=== PATIENT | male | born 1975 | race Caucasian/White ===

== ENCOUNTER 2017-04-07 06:37 | Day surgery (SDC) | payer BC ==
[~2017-04-07 06:37] MED LIST: Lactated Ringers 1,000 ML IV SCH; ceFAZolin 2 GM in Premix Bag 1 BAG IV ONE
[2017-04-07] MEDS ORDERED: Ondansetron 4 MG/2 ML SDV ONE (07:13)
[2017-04-07] MEDS ORDERED: Propofol 200 MG/20 ML SDV ONE (07:13)
[2017-04-07] MEDS ORDERED: fentaNYL 100 MCG/2 ML SDV ONE (07:13)
[2017-04-07] MEDS ORDERED: Midazolam 1 MG/ML 2 ML SDV ONE (07:13)
[2017-04-07] MEDS ORDERED: Ketorolac 30 MG/ML SDV ONE (07:15)
[2017-04-07] MEDS ORDERED: Rocuronium 10 MG/ML 10 ML Syringe ONE (07:15)
[2017-04-07] MEDS ORDERED: Dexamethasone 4 MG/ML 5 ML MDV ONE (07:15)
--- NOTE | 2017-04-07 07:15 | PCM.PREANE ---
Preanesthetic Assessment - Anesthesia/Transfusion/Family Hx Anesthesia History: No Prior Anesthesia Family History of Anesthesia Reaction: No Transfusion History: No Prior Transfusion(s) Intubation History: Unknown - Review of Systems General: No Symptoms Pulmonary: No Symptoms Cardiovascular: No Symptoms Gastrointestinal: No Symptoms Neurological: No Symptoms Other: Reports: None - Physical Assessment O2 Sat by Pulse Oximetry: 96 Respiratory Rate: 16 Vital Signs: Last Vital Signs Temp 36 C 04/07/17 06:52 Pulse 66 04/07/17 06:52 Resp 16 04/07/17 06:52 BP 136/87 04/07/17 06:52 Pulse Ox 96 04/07/17 06:52 Height: 1.8 m Weight: 84.822 kg ASA Class: 2 Mental Status: Alert & Oriented x3 Airway Class: Mallampati = 2 Dentition: Reports: Normal Dentition Thyro-Mental Finger Breadths: 2 Mouth Opening Finger Breadths: 3 ROM/Head Extension: Full Lungs: Clear to Auscultation, Normal Respiratory Effort Cardiovascular: Regular Rate, Regular Rhythm - Allergies Allergies/Adverse Reactions: Allergies Allergy/AdvReac Type Severity Reaction Status Date / Time meperidine [From Demerol] Allergy Airway Verified 04/02/17 11:11 Tightness - Blood Blood Available: No - Anesthesia Plan Pre-Op Medication Ordered: None - Acknowledgements Anesthesia Type Planned: General Anesthesia Pt an Appropriate Candidate for the Planned Anesthesia: Yes Alternatives and Risks of Anesthesia Discussed w Pt/Guardian: Yes Pt/Guardian Understands and Agrees with Anesthesia Plan: Yes PreAnesthesia Questionnaire Gastrointestinal History: Reports: Chronic Constipation Musculoskeletal History: Reports: Fracture Other Musculoskeletal History: hx of fx right arm x2 and ribs - SUBSTANCE USE Smoking Status *Q: Current Every Day Smoker Tobacco Use Within Last Twelve Months: Smokeless Tobacco Recreational Drug Use History: No - HOME MEDS Home Medications: Home Meds . [No Known Home Meds] 04/02/17 [History] - CURRENT (IN HOUSE) MEDS Current Meds: Current Medications Lactated Ringer's (Ringers, Lactated) 1,000 mls @ 125 mls/hr IV ASDIRECTED BRIDGER Last Admin: 04/07/17 06:53 Dose: 125 mls/hr Discontinued Medications Cefazolin Sodium/Dextrose 2 gm (/ Premix) 50 mls @ 100 mls/hr IV ONETIME ONE Stop: 04/07/17 05:29
[2017-04-07] MEDS ORDERED: Bupivacaine 25%/EPINEPHrine/PF 30 ML ONE (07:21)
[2017-04-07] MEDS ORDERED: Lidocaine 1% with EPINEPHrine 1:100,000 20 ML MDV ONE (07:22)
[2017-04-07] MEDS ORDERED: Octyl 2-Cyanoacrylate 1 Tube ONE (07:22)
[2017-04-07] MEDS ORDERED: Acetaminophen/oxyCODONE 325-10 MG Tab PO ONE (07:59)
[2017-04-07] MEDS ORDERED: ceFAZolin 1 GM Vial ONE (08:13)
[2017-04-07] MEDS ORDERED: Sodium Chloride 0.9% 20 ML ONE (08:13)
[2017-04-07] MEDS ORDERED: Morphine 10 MG/ML Syringe ONE (08:31)
--- NOTE | 2017-04-07 09:31 | PCM.OPNOTE ---
- General Post-Op/Procedure Note Date of Surgery/Procedure: 04/07/17 Operative Procedure(s): ing hernia rep w mesh Left Findings: large direct hernia and small lipoma, a large plug and mesh was used.[id number] Pre Op Diagnosis: ing hernia L Post-Op Diagnosis: Same Anesthesia Technique: General ET Tube Primary Surgeon: Eber Fuentes Complications: None Condition: Good
[2017-04-07] MEDS ORDERED: fentaNYL 100 MCG/2 ML SDV IVPUSH PRN (09:39)
[2017-04-07] MEDS ORDERED: Ketorolac 30 MG/ML SDV IVPUSH ONE (09:39)
--- NOTE | 2017-04-07 10:29 | PCM.POSTAN ---
POST ANESTHESIA ASSESSMENT - MENTAL STATUS Mental Status: Alert, Oriented - RESPIRATORY Respiratory Status: Respiratory Rate WNL, Airway Patent, O2 Saturation Stable - CARDIOVASCULAR CV Status: Pulse Rate WNL, Blood Pressure Stable - GASTROINTESTINAL GI Status: No Symptoms - PAIN Pain Score: 1 - POST OP HYDRATION Hydration Status: Adequate & Stable - OBSERVATIONS Free Text/Narrative:: no anesthesia problems
--- NOTE | 2017-04-07 12:37 | OR ---
SURGEON: Eber Fuentes MD DATE OF PROCEDURE: 04/07/2017 PREOPERATIVE DIAGNOSIS: Inguinal hernia on the left. POSTOPERATIVE DIAGNOSIS: Inguinal hernia on the left. PROCEDURE PERFORMED: Repair with mesh. COMPLICATIONS: None. FINDINGS: A very large direct hernia, and very small indirect lipoma, both were repaired. Lipoma with stitches and direct inguinal hernia with plug, large size. PROCEDURE IN DETAIL: The patient was taken to the operating room and placed in the supine position. Upon induction of general endotracheal anesthesia, the patient's groin and inguinal area were prepped and draped in a sterile fashion. The scrotum was placed on top of the drape in case it needed to be maneuvered. An IV antibiotic was given prophylactically and after assessment of appropriate landmark, a transverse incision was made 3 fingers above the inguinal ligament. This incision was then carefully taken down past the Ami fascia and exposed the external oblique where the cord is. The external ring was also identified and using a 15 blade, a small loi was made right on top of the ext obliquie above the cord and then using a Metzenbaum scissors, carefully opened up the fiber along its direction all the way from the internal ring to the external ring. The spermatic cord was then carefully lifted up from the inguinal canal by sharp and blunt dissection. A Rigby drain was then used to hold on to manipulate the cord. The cremasteric muscle was then opened up. Careful examination of the cord after dissecting the cord, found tiny lipoma, which was ligated with 2 '0' silk. There is a weakening of the ing floor, resulted in a large direct ing hernia, a large size plug was placed. Custom fit mesh was then used to reinforce the inguinal floor. The mesh was then anchored down by using 2-0 Prolene stitches to the periosteum of the pubic symphysis, then running down to the lateral aspect of the rectus muscle. The lateral part of the mesh was then anchored to the Mele ligament, again using 2 - 0 Prolene. The last few stitches also anchored the plug to make sure the plug is not migrating. There was one stitch placed at the end of the two tails to recreate the internal ring. Upon conclusion of surgery, I used a finger to make sure the ring is not too tight and not too loose, followed with irrigation. The external oblique was then repaired with 2-0 Vicryl and recreated the external ring; this was also tested, not too tight, not too loose, followed with 2-0 Vicryl and closed the Ami fascia and the skin stapled to approximate the skin, followed by appropriate dressing. Prior to closing of the skin, sponge and instrument count was correct. Post op checking, there were 2 testicles and symmetrically descend. The patient was then awakened, extubated and transferred to recovery room in a hemodynamically stable condition. The patient tolerated the procedure well. There were no intraoperative complications. Dr. Fuentes was present through the whole procedure. Just before surgery, a timeout was called. The patient was identified and procedure identified and procedure started. As always, thank you for the kind referral. ANNIE COUCH /[id number] MTDEdgard
== END 2017-04-07 10:50 | disposition home or self-care (01) ==
LOC: MW.SDS 06:37
PROVIDERS: ATTEND Surgery
DX: K40.90 Unilateral inguinal hernia, without obstruction or gangrene, not specified as recurrent (principal); D17.6 Benign lipomatous neoplasm of spermatic cord; F17.290 Nicotine dependence, other tobacco product, uncomplicated; Z88.5 Allergy status to narcotic agent
CPT/HCPCS: 49505; C1781; J0690; J1100; J1885; J2250; J2270; J2405; J3010; J7120; 00830; A9270-GY; J2704

== ENCOUNTER 2023-03-29 10:34 | Emergency (ER) | payer BC ==
[2023-03-29] MEDS ORDERED: Diphtheria,Pertussis(Acell),Tetanus Vaccine 0.5 ML Syringe IM ONE (10:50)
[2023-03-29] MEDS ORDERED: ceFAZolin 2 GM in Sodium Chloride 0.9% 50 ML IV ONE (11:56)
== END 2023-03-29 13:22 | disposition home or self-care (01) ==
LOC: MW.ED 10:34
DX: S61.001A Unspecified open wound of right thumb without damage to nail, initial encounter (principal); F17.210 Nicotine dependence, cigarettes, uncomplicated; Z23 Encounter for immunization; Z88.5 Allergy status to narcotic agent; W23.0XXA Caught, crushed, jammed, or pinched between moving objects, initial encounter
CPT/HCPCS: 73140; 90471; 90715; 96365; 99283; J0690; J3490